=== PATIENT | male | born 1970 | race Hispanic/Latino ===

== ENCOUNTER 2020-07-18 01:39 | Emergency (ER) | payer BC ==
[2020-07-18] MEDS ORDERED: ONDANSETRON 4 MG/2 ML INJ IV ONE (01:58)
[2020-07-18] MEDS ORDERED: SODIUM CHLORIDE 0.9% 1000 ML 1,000 ML IV ONE (01:58)
[2020-07-18] MEDS ORDERED: HYDROmorphone 1 MG/1 ML INJ IV ONE ×2 (01:58→08:27)
--- NOTE | 2020-07-18 02:03 | Emergency Department Report ---
ED Abdominal Pain HPI - General Chief Complaint: Abdominal Pain Stated Complaint: ABDOMINAL PAIN PUI?: No Time Seen by Provider: 07/18/20 01:58 Source: patient, EMS Mode of arrival: Stretcher Limitations: No Limitations - History of Present Illness Initial Comments: Patient is a 49-year-old male that presents emergency room with complaints of abdominal pain. Patient states that generalized abdominal pain. Patient states it feels like a cramp. Patient states his abdominal pain is a stabbing pain. Patient states it is a 10 out of 10. Patient states it is worse with movement and better with rest. Patient states is also worse with palpation. Patient denies fever chills. Patient denies nausea vomiting. Patient denies chest pain or shortness of breath. Patient denies past medical history. Patient denies recent travel. Patient denies recent international travel. Patient denies exposure to the novel coronavirus. Patient denies sick contacts. Patient denies fever and chills. Patient denies cough. Patient denies diarrhea. Patient denies coming in contact with anybody with symptoms of the novel coronavirus. MD Complaint: abdominal pain -: Sudden Location: diffuse Radiation: none Migration to: no migration Severity: severe Severity scale (0 -10): 10 Quality: cramping, stabbing Consistency: constant Improves With: rest Worsens With: movement, other Associated Symptoms: denies other symptoms. denies: nausea, vomiting, diarrhea, fever, chills, constipation, dysuria, hematemesis, hematochezia, melena, hematuria, anorexia, syncope - Related Data Allergies Allergy/AdvReac Type Severity Reaction Status Date / Time No Known Allergies Allergy Unverified 07/18/20 01:58 ED Review of Systems ROS: Stated complaint: ABDOMINAL PAIN Other details as noted in HPI Constitutional: denies: chills, fever Eyes: denies: eye pain, eye discharge, vision change ENT: denies: ear pain, throat pain Respiratory: denies: cough, shortness of breath, wheezing Cardiovascular: denies: chest pain, palpitations Endocrine: no symptoms reported Gastrointestinal: denies: abdominal pain, nausea, diarrhea Genitourinary: denies: urgency, dysuria Musculoskeletal: denies: back pain, joint swelling, arthralgia Skin: denies: rash, lesions Neurological: denies: headache, weakness, paresthesias Psychiatric: denies: anxiety, depression Hematological/Lymphatic: denies: easy bleeding, easy bruising ED Past Medical Hx - Past Medical History Previous Medical History?: No - Surgical History Past Surgical History?: No - Family History Family history: no significant - Social History Smoking Status: Never Smoker Substance Use Type: None ED Physical Exam - General Limitations: No Limitations General appearance: alert, in no apparent distress, obese - Head Head exam: Present: atraumatic, normocephalic - Eye Eye exam: Present: normal appearance - ENT ENT exam: Present: mucous membranes moist - Neck Neck exam: Present: normal inspection - Respiratory Respiratory exam: Present: normal lung sounds bilaterally. Absent: respiratory distress - Cardiovascular Cardiovascular Exam: Present: regular rate, normal rhythm. Absent: systolic murmur, diastolic murmur, rubs, gallop - GI/Abdominal GI/Abdominal exam: Present: soft, tenderness (Generalized tenderness to palpation), normal bowel sounds - Rectal Rectal exam: Present: deferred - Extremities Exam Extremities exam: Present: normal inspection - Back Exam Back exam: Present: normal inspection - Neurological Exam Neurological exam: Present: alert, oriented X3 - Psychiatric Psychiatric exam: Present: normal affect, normal mood - Skin Skin exam: Present: warm, dry, intact, normal color. Absent: rash ED Course Vital Signs 07/18/20 07/18/20 07/18/20 01:43 02:24 02:28 Temperature 97.6 F Pulse Rate 65 64 Respiratory 19 19 17 Rate Blood Pressure 195/90 166/79 [Left] O2 Sat by Pulse 98 98 97 Oximetry 07/18/20 07/18/20 07/18/20 05:44 07:17 09:29 Temperature Pulse Rate 63 63 61 Respiratory 19 24 22 Rate Blood Pressure 174/86 185/97 168/84 [Left] O2 Sat by Pulse 97 98 99 Oximetry - Reevaluation(s) Reevaluation #1: I discussed with the mobile home technician the size of the patient mobile home technician states that the patient would not fit in a machine and is over our machines weight limit. 07/18/20 02:03 Reevaluation #2: I discussed all results and clinical findings with patient. I discussed plan of care with patient. Patient agrees with plan of care. Patient is stable for transfer. Patient will be transferred to [facility]. 07/18/20 04:16 - Consultations Consultation #1: I discussed the case with ER attending, Dr. Castro. Dr. Castro's at [facility] has accepted the patient to be an ER to ER transfer. 07/18/20 04:10 ED Medical Decision Making - Lab Data Result diagrams: 07/18/20 02:16 07/18/20 02:16 - Medical Decision Making Patient is a 49-year-old male the past emergency room with complaints of abdominal pain. Patient described as the worst abdominal pain he is ever had. Patient is morbidly obese. Patient's weight and circumference is above the capabilities of our hospital. I called multiple hospitals in the local area and they are all on diversion. Patient will be transferred to [facility] as it is the only hospital locally that has the capacity and the ability to care for this patient due to the patient's weight and circumference. Patient's labs were done and were essentially markable except for elevated WBC and abnormal LFTs. Patient is stable for transfer. Patient transferred via EMS. - Differential Diagnosis Abdominal pain, pancreatitis, appendicitis, GERD, gastroenteritis Critical Care Time: Yes Critical care time in (mins) excluding proc time.: 35 Critical care attestation.: If time is entered above; I have spent that time in minutes in the direct care of this critically ill patient, excluding procedure time. Critical Care Time: 35 minutes ED Disposition Clinical Impression: Abnormal LFTs Abdominal pain Qualifiers: Abdominal location: generalized Qualified Code(s): R10.84 - Generalized abdominal pain Elevated WBC count Qualifiers: Leukocytosis type: unspecified Qualified Code(s): D72.829 - Elevated white blood cell count, unspecified Disposition: DC/TX-70 ANOTHER TYPE HLTHCARE Is pt being admited?: No Does the pt Need Aspirin: No Condition: Critical Time of Disposition: 04:16
[2020-07-18 02:34] LABS: Basophils % (Auto) 0.4 % (0.0-1.8); Eosinophils # (Auto) 0.1 K/mm3 (0.0-0.4); Eosinophils % (Auto) 1.1 % (0.0-4.3); Hematocrit 42.6 % (35.5-45.6); Lymphocytes # (Auto) 1.1 K/mm3 (1.2-5.4); Lymphocytes % (Auto) 9.7 % (13.4-35.0); Mean Corpuscular HGB Conc 33 % (32-34); Mean Corpuscular Volume 87 fl (84-94); Monocytes # (Auto) 0.6 K/mm3 (0.0-0.8); Monocytes % (Auto) 5.5 % (0.0-7.3); Platelet Count 258 K/mm3 (140-440); Red Blood Count 4.87 M/mm3 (3.65-5.03); Red Cell Distribution Width 15.2 % (13.2-15.2)
[2020-07-18 02:50] LABS: Alanine Aminotransferase 121 units/L (7-56); Albumin 3.6 g/dL (3.9-5); BUN/Creatinine Ratio 16; Bilirubin,Direct 0.6 mg/dL (0-0.2); Blood Urea Nitrogen 14 mg/dL (9-20); Hemolysis Index 0
[2020-07-18 09:31] VITALS: BP 168/84
== END 2020-07-18 09:32 | disposition other institution (70) ==
LOC: ED 01:39
DX: R10.84 Generalized abdominal pain (principal); D72.829 Elevated white blood cell count, unspecified; R94.5 Abnormal results of liver function studies
CPT/HCPCS: 36415; 80048; 80076; 83690; 85025; 96361; 96374; 96375; 96376; 99285; J1170; J2405; J7030; 96365